=== PATIENT | female | born 1990 | race Caucasian/White ===

== ENCOUNTER 2016-06-15 13:10 | Emergency (ER) | payer BC ==
[2016-06-15 14:07] LABS: HEMOGLOBIN 14.5 gm/dl (12.3-15.3); RED BLOOD COUNT 4.77 M/UL (4.00-5.10); WHITE BLOOD COUNT 11.3 K/UL (4.5-11.0)
[2016-06-15 14:14] LABS: BUN/CREATININE RATIO 12 (0-10)
== END 2016-06-15 16:30 | disposition home or self-care (01) ==
LOC: ER1 13:10
PROVIDERS: Family Medicine
DX: O46.92 Antepartum hemorrhage, unspecified, second trimester (principal); Z3A.14 14 weeks gestation of pregnancy
CPT/HCPCS: 36415; 76801; 80053; 81001; 84702; 85025; 99284